=== PATIENT | female | born 1985 | race Caucasian/White ===

== ENCOUNTER 2019-01-15 05:38 | Inpatient (IN) | payer OTHER ==
[~2019-01-15] VITALS: Ht 162.6 cm; Wt 102.3 kg
[2019-01-15 05:45] VITALS: BP 137/77
[2019-01-15] MEDS ORDERED: METOCLOPRAMIDE 5 MG/ML, 2ML IV ONE (06:00)
[2019-01-15] MEDS ORDERED: LACTATED RINGERS 1,000 ML IVBOLUS ONE (06:00)
[2019-01-15] MEDS ORDERED: SODIUM CITRATE/CITRIC ACID 15 ML UDC PO ONE (06:00)
[2019-01-15 06:30] LABS: BASOPHILS # (AUTO) 0.03 x10^3/uL (0-0.1); BASOPHILS % (AUTO) 0 % (0-1); EOSINOPHILS # (AUTO) 0.05 x10^3/uL (0-0.4); EOSINOPHILS % (AUTO) 1 % (1-7); LYMPHOCYTES # (AUTO) 2.15 x10^3/uL (1-3.4); LYMPHOCYTES % (AUTO) 28 % (22-44); MD NO; MEAN CORPUSCULAR HEMOGLOBIN 33.8 pg (27.0-34.8); MEAN CORPUSCULAR HGB CONC 34.1 g/dL (32.4-35.8); MEAN CORPUSCULAR VOLUME 99.2 fL (80-100); MEAN PLATELET VOLUME 9.7 fL (7.4-10.4); MONOCYTES # (AUTO) 0.87 x10^3/uL (0.2-0.8); MONOCYTES % (AUTO) 11 % (2-9); NEUTROPHILS # (AUTO) 4.57 x10^3/uL (1.8-6.8); NEUTROPHILS % (AUTO) 60 % (42-75); PLATELET COUNT 131 x10^3/uL (130-400); RED BLOOD COUNT 3.24 x10^6/uL (3.82-5.3); RED CELL DISTRIBUTION WIDTH 15.1 % (9.6-15.2)
[2019-01-15] MEDS ORDERED: NEWBORN KIT ONE (06:35)
[2019-01-15] MEDS ORDERED: SODIUM CITRATE/CITRIC ACID 15 ML UDC ONE (07:03)
[2019-01-15] MEDS ORDERED: OXYTOCIN 30U/ 0.9% NaCL 500ML 500 ML ONE (07:04)
[2019-01-15] MEDS ORDERED: METOCLOPRAMIDE 5 MG/ML, 2ML ONE (07:04)
[2019-01-15] MEDS ORDERED: HYDROcodone/APAP 7.5-325MG/15ML UDC PO PRN (07:30)
[2019-01-15] MEDS ORDERED: hydrALAzine 20 MG/ML, 1ML IV PRN (07:30)
[2019-01-15] MEDS ORDERED: ALBUTEROL SULFATE 2.5 MG/3 ML NPPB PRN (07:30)
[2019-01-15] MEDS ORDERED: PROMETHAZINE 25 MG/ML, 1ML IV PRN (07:30)
[2019-01-15] MEDS ORDERED: OXYcodone 5 MG/5 ML ORAL.SOL UDC PO PRN (07:30)
[2019-01-15] MEDS ORDERED: ONDANSETRON 2MG/ML, 2ML IVPush PRN (07:30)
[2019-01-15] MEDS ORDERED: FENTANYL PF 100 MCG/2ML IV PRN (07:30)
[2019-01-15] MEDS ORDERED: HYDROmorphone 2 MG/ML, 1ML IVPush PRN (07:30)
[2019-01-15] MEDS ORDERED: MEPERIDINE/PF 25MG/0.5ML IVPush PRN (07:30)
[2019-01-15] MEDS ORDERED: MIDAZOLAM 1 MG/ML, 2ML IV PRN (07:30)
[2019-01-15] MEDS ORDERED: LABETALOL 5MG/ML, 20ML IV PRN (07:30)
[2019-01-15] MEDS ORDERED: EPHEDRINE 50 MG/ML, 1ML IVPush PRN (07:30)
[2019-01-15] MEDS ORDERED: DEXAMETHASONE 4 MG/ML, 1ML ONE (07:31)
[2019-01-15] MEDS ORDERED: CEFAZOLIN 1,000 MG ONE (07:31)
[2019-01-15] MEDS ORDERED: KETOROLAC 30 MG/1 ML ONE (07:31)
[2019-01-15] MEDS ORDERED: PHENYLEPHRINE 10 MG/ML ONE (07:31)
[2019-01-15] MEDS ORDERED: EPHEDRINE 50 MG/ML, 1ML ONE (07:31)
[2019-01-15] MEDS ORDERED: FENTANYL PF 100 MCG/2ML ONE (07:31)
[2019-01-15] MEDS ORDERED: ONDANSETRON 2MG/ML, 2ML ONE ×2 (07:31→10:59)
[2019-01-15] MEDS ORDERED: OXYTOCIN 10 UNITS/ML, 1ML ONE (07:31)
[2019-01-15] MEDS ORDERED: HYDROmorphone 2 MG/ML, 1ML ONE (07:46)
[2019-01-15] MEDS: LACTATED RINGERS 1,000 ML IV SCH ×4 (09:19→19:19)
[2019-01-15] MEDS: OXYTOCIN 30U/ 0.9% NaCL 500ML 500 ML IV SCH ×2 (09:28→19:19)
[2019-01-15] MEDS ORDERED: morphine SULFATE 10 MG/ML, 1ML IM PRN (09:30)
[2019-01-15] MEDS ORDERED: morphine SULFATE 10 MG/ML, 1ML IVPush PRN (09:30)
[2019-01-15 11:07] VITALS: BP 91/57
[2019-01-15] MEDS: ONDANSETRON 2MG/ML, 2ML IVPush PRN (11:21)
[2019-01-15] MEDS: KETOROLAC 30 MG/1 ML IV SCH ×3 (11:21→23:39)
[2019-01-15] MEDS: OXYcodone/APAP 5/325MG TABLET PO PRN ×4 (12:54→21:54)
[2019-01-15 15:58] VITALS: BP 107/69
[2019-01-15 16:36] LABS: BASOPHILS # (AUTO) 0.03 x10^3/uL (0-0.1); BASOPHILS % (AUTO) 0 % (0-1); EOSINOPHILS # (AUTO) 0.01 x10^3/uL (0-0.4); EOSINOPHILS % (AUTO) 0 % (1-7); LYMPHOCYTES # (AUTO) 1.64 x10^3/uL (1-3.4); LYMPHOCYTES % (AUTO) 17 % (22-44); MD NO; MEAN CORPUSCULAR HGB CONC 33.5 g/dL (32.4-35.8); MEAN CORPUSCULAR VOLUME 101.3 fL (80-100); MEAN PLATELET VOLUME 9.4 fL (7.4-10.4); MONOCYTES # (AUTO) 0.88 x10^3/uL (0.2-0.8); MONOCYTES % (AUTO) 9 % (2-9); NEUTROPHILS # (AUTO) 7.14 x10^3/uL (1.8-6.8); NEUTROPHILS % (AUTO) 74 % (42-75); PLATELET COUNT 126 x10^3/uL (130-400); RED BLOOD COUNT 3.15 x10^6/uL (3.82-5.3); RED CELL DISTRIBUTION WIDTH 14.7 % (9.6-15.2)
[2019-01-15 20:00] VITALS: BP 110/73
[2019-01-15] MEDS: DOCUSATE 100 MG CAPSULE PO PRN (21:55)
[2019-01-16] VITALS: BP 123/84
[2019-01-16] MEDS: LACTATED RINGERS 1,000 ML IV SCH ×3 (01:19→09:19)
[2019-01-16] MEDS: OXYcodone/APAP 5/325MG TABLET PO PRN ×5 (02:19→20:38)
[2019-01-16] MEDS: ONDANSETRON 2MG/ML, 2ML IVPush PRN (02:25)
[2019-01-16 03:55] VITALS: BP 118/74
[2019-01-16] MEDS: OXYTOCIN 30U/ 0.9% NaCL 500ML 500 ML IV SCH (05:19)
[2019-01-16] MEDS: KETOROLAC 30 MG/1 ML IV SCH ×4 (05:46→23:52)
[2019-01-16] MEDS: PRENATAL VIT/IRON/FA 1 EACH TABLET PO SCH (07:55)
[2019-01-16] MEDS: DOCUSATE 100 MG CAPSULE PO PRN ×2 (07:55→20:40)
[2019-01-16 09:15] VITALS: BP 116/74
[2019-01-16 20:00] VITALS: BP 106/68
[2019-01-16] MEDS: SIMETHICONE 80 MG CHEW TAB PO PRN (23:52)
[2019-01-17] MEDS: OXYcodone/APAP 5/325MG TABLET PO PRN ×6 (00:43→22:06)
[2019-01-17] MEDS: SIMETHICONE 80 MG CHEW TAB PO PRN ×3 (04:31→20:24)
[2019-01-17] MEDS: KETOROLAC 30 MG/1 ML IV SCH (06:14)
[2019-01-17 08:20] VITALS: BP 121/78
[2019-01-17] MEDS: DOCUSATE 100 MG CAPSULE PO PRN ×2 (09:21→20:22)
[2019-01-17] MEDS: PRENATAL VIT/IRON/FA 1 EACH TABLET PO SCH (09:21)
[2019-01-17] MEDS: IBUPROFEN 600 MG TABLET PO PRN ×2 (12:15→20:22)
[2019-01-17 20:15] VITALS: BP 123/78
[2019-01-18] MEDS: IBUPROFEN 600 MG TABLET PO PRN ×2 (04:16→10:47)
[2019-01-18] MEDS: SIMETHICONE 80 MG CHEW TAB PO PRN ×2 (04:16→10:46)
[2019-01-18] MEDS: OXYcodone/APAP 5/325MG TABLET PO PRN ×3 (04:16→13:38)
[2019-01-18] MEDS ORDERED: DIPH,PERTUSS(ACELL),TET VAC/PF NC IM-VACC ONE ×2 (06:17→06:30)
[2019-01-18 08:40] VITALS: BP 125/84
[2019-01-18] MEDS: DOCUSATE 100 MG CAPSULE PO PRN (08:44)
[2019-01-18] MEDS: PRENATAL VIT/IRON/FA 1 EACH TABLET PO SCH (08:44)
[2019-01-18] MEDS ORDERED: PREN1TAB98 PO (11:47)
[2019-01-18] MEDS ORDERED: IBUP-1222 PO (11:47)
[2019-01-18] MEDS ORDERED: OXYC-302 PO (11:48)
== END 2019-01-18 15:14 | disposition home or self-care (01) | DRG 788 ==
LOC: LDIP 05:38 → 2NW 10:33
PROVIDERS: ADMIT Obstetrics & Gynecology; ATTEND Obstetrics & Gynecology
PROC: 10D00Z1 Extraction of Products of Conception, Low, Open Approach (ICD-10-PCS; principal; 2019-01-15)
DX: O34.211 Maternal care for low transverse scar from previous cesarean delivery (principal); Z37.0 Single live birth; Z3A.39 39 weeks gestation of pregnancy; Z83.3 Family history of diabetes mellitus; G89.18 Other acute postprocedural pain; O90.89 Other complications of the puerperium, not elsewhere classified
CPT/HCPCS: 36415; 85025; 86850; 86900; 90715; G0378; J0690; J1100; J1170; J1885; J2405; J3010; J2370; J2590; J2765; J7120